=== PATIENT | female | born 2000 | race Two or more races ===

== ENCOUNTER 2022-10-14 17:36 | Emergency (ER) | payer OTHER ==
[~2022-10-14] VITALS: Ht 157.5 cm; Wt 50.8 kg
[2022-10-14] MEDS ORDERED: PRENATAL + DHA1 EAC1 PO (18:11)
[2022-10-14] MEDS ORDERED: CEPHALEXIN500 M1 PO (21:51)
== END 2022-10-14 21:54 | disposition home or self-care (01) ==
LOC: ER 17:36
DX: O20.9 Hemorrhage in early pregnancy, unspecified (principal); O23.41 Unspecified infection of urinary tract in pregnancy, first trimester; N39.0 Urinary tract infection, site not specified; Z3A.01 Less than 8 weeks gestation of pregnancy

== ENCOUNTER 2022-12-26 14:55 | Outpatient (CLI) | payer OTHER ==
[~2022-12-26 14:55] MED LIST: CEPHALEXIN500 M1 PO; PRENATAL + DHA1 EAC1 PO
== END 2022-12-26 16:25 | disposition home or self-care (01) ==
LOC: PRENATAL 14:55
PROVIDERS: ATTEND Obstetrics & Gynecology Maternal & Fetal Medicine
DX: O36.80X0 Pregnancy with inconclusive fetal viability, not applicable or unspecified (principal); Z36.9 Encounter for antenatal screening, unspecified; Z3A.14 14 weeks gestation of pregnancy

== ENCOUNTER 2023-02-06 13:15 | Outpatient (CLI) | payer OTHER | END 2023-02-06 14:15 | disposition home or self-care (01) | LOC: PRENATAL 13:15 | PROVIDERS: ATTEND Obstetrics & Gynecology Maternal & Fetal Medicine | DX: O35.3XX0 Maternal care for (suspected) damage to fetus from viral disease in mother, not applicable or unspecified (principal); O44.00 Complete placenta previa NOS or without hemorrhage, unspecified trimester; Z3A.20 20 weeks gestation of pregnancy ==

== ENCOUNTER 2023-04-11 19:50 | Outpatient (CLI) | payer OTHER ==
[~2023-04-11 19:50] MED LIST changes: +OSEL75CA PO
[2023-04-11] MEDS ORDERED: PRENATAL TABLE1 EAC1 PO (20:01)
[2023-04-11 20:20] LABS: HEMATOCRIT 33.1 % (36.0-45.00); HEMOGLOBIN 11.5 g/dL (12.0-15.00); MEAN CELL VOLUME 93.2 fL (80.00-100.00); MEAN CORPUSCULAR HEMOGLOBIN 32.4 pg (27.00-32.0); MEAN CORPUSCULAR HGB CONC 34.8 g/dl (32.0-36.0); PH,URINE 7.5 (5.0-8.0); PLATELET COUNT 224 K/uL (150-450); RED BLOOD COUNT 3.55 M/uL (4.00-6.00); RED CELL DISTRIBUTION WIDTH 12.7 % (11.5-14.5); URINE APPEARANCE Turbid; URINE BILIRRUBIN Negative (NEGATIVE); URINE BLOOD Negative; URINE COLOR Yellow; URINE GLUCOSE Negative (NEGATIVE); URINE LEUKOCYTE Large; URINE NITRATE Negative; URINE PROTEIN Negative (NEGATIVE)
[2023-04-11 20:23] LABS: URINE BACTERIA 1976.8 uL (0.0-1933); URINE EPITHELIAL CELLS 72.1 uL (0.0-38.8); URINE RBC 3.7 uL (0.0-20.8); URINE WBC 317.2 uL (0.0-23.2)
[2023-04-11 20:40] LABS: URINE CRYSTALS MODERATE /HPF; URINE MUCUS SCANT
== END 2023-04-12 15:20 | disposition home or self-care (01) ==
LOC: OBS/DEL 19:50
PROVIDERS: Obstetrics & Gynecology; ATTEND Obstetrics & Gynecology
DX: O23.33 Infections of other parts of urinary tract in pregnancy, third trimester (principal); N39.0 Urinary tract infection, site not specified; Z3A.29 29 weeks gestation of pregnancy

== ENCOUNTER 2023-06-05 19:02 | Outpatient (CLI) | payer OTHER ==
[~2023-06-05 19:02] MED LIST changes: +PRENATAL TABLE1 EAC1 PO
== END 2023-06-05 20:55 | disposition left against medical advice (07) ==
LOC: OBS/DEL 19:02
PROVIDERS: ATTEND Obstetrics & Gynecology
DX: Z53.21 Procedure and treatment not carried out due to patient leaving prior to being seen by health care provider (principal)

== ENCOUNTER 2023-06-11 11:34 | Outpatient (CLI) | payer OTHER | END 2023-06-11 13:38 | disposition home or self-care (01) | LOC: OBS/DEL 11:34 | PROVIDERS: ATTEND Obstetrics & Gynecology | DX: O26.893 Other specified pregnancy related conditions, third trimester (principal); Z3A.38 38 weeks gestation of pregnancy ==

== ENCOUNTER 2023-06-12 12:48 | Inpatient (IN) | payer OTHER ==
[~2023-06-12] VITALS: Ht 157.5 cm; Wt 67.1 kg
[2023-06-12 13:32] LABS: URINE APPEARANCE Clear; URINE BILIRRUBIN Negative (NEGATIVE); URINE BLOOD Negative; URINE COLOR Yellow; URINE GLUCOSE Negative (NEGATIVE); URINE LEUKOCYTE Moderate; URINE NITRATE Negative; URINE PROTEIN Negative (NEGATIVE)
[2023-06-12 13:47] LABS: URINE BACTERIA 1166.6 uL (0.0-1933); URINE EPITHELIAL CELLS 24.7 uL (0.0-38.8); URINE RBC 2.7 uL (0.0-20.8); URINE WBC 97.2 uL (0.0-23.2)
[2023-06-12 14:11] LABS: HEMATOCRIT 35.7 % (36.0-45.00); HEMOGLOBIN 11.9 g/dL (12.0-15.00); MEAN CELL VOLUME 90.2 fL (80.00-100.00); MEAN CORPUSCULAR HEMOGLOBIN 30.2 pg (27.00-32.0); MEAN CORPUSCULAR HGB CONC 33.4 g/dl (32.0-36.0); PLATELET COUNT 190 K/uL (150-450); RED BLOOD COUNT 3.96 M/uL (4.00-6.00); RED CELL DISTRIBUTION WIDTH 13.6 % (11.5-14.5)
[2023-06-12 14:33] LABS: BILIRUBIN TOTAL 0.37 mg/dL (0.3-1.2); CREATININE SERUM 0.66 mg/dL (0.55-1.02); GFR 110.03; POTASSIUM 3.94 mEq/L (3.5-5.1)
[2023-06-12 14:40] LABS: INR < 0.93; PARTIAL THROMBOPLASTIN TIME 24.4 SECONDS (22.0-34.0); PROTHROMBIN TIME 9.8 SECONDS (9.0-11.5)
[2023-06-16 11:44] LABS: ABG PH 7.318 (7.35-7.45); ABG pCO2 46.3 mmHg (35-45)
[2023-06-16 11:45] LABS: ABG PO2 23.8 mmHg (80-100); BASE EXCESS -3.1 mmol/l; BICARBONATE 23.2 mmol/l (23-25); SaO2 35.2 %; Tco2 24.6 mmol/l; o2 21 %
[2023-06-16 17:58] LABS: HEMATOCRIT 33.1 % (36.0-45.00); MEAN CELL VOLUME 90.9 fL (80.00-100.00); MEAN CORPUSCULAR HEMOGLOBIN 30.2 pg (27.00-32.0); MEAN CORPUSCULAR HGB CONC 33.3 g/dl (32.0-36.0); PLATELET COUNT 181 K/uL (150-450); RED BLOOD COUNT 3.65 M/uL (4.00-6.00); RED CELL DISTRIBUTION WIDTH 13.4 % (11.5-14.5)
[2023-06-19] MEDS ORDERED: IBUPROFEN800 MG PO (07:32)
== END 2023-06-19 14:39 | disposition home or self-care (01) | DRG 787 ==
LOC: OB/GYN 12:48
PROVIDERS: Obstetrics & Gynecology; ADMIT Obstetrics & Gynecology; ATTEND Obstetrics & Gynecology
PROC: 4A1HXCZ Monitoring of Products of Conception, Cardiac Rate, External Approach (ICD-10-PCS; 2023-06-12)
PROC: BY4FZZZ Ultrasonography of Third Trimester, Single Fetus (ICD-10-PCS; 2023-06-13)
PROC: 10D00Z1 Extraction of Products of Conception, Low, Open Approach (ICD-10-PCS; principal; 2023-06-16 10:30)
DX: O36.8330 Maternal care for abnormalities of the fetal heart rate or rhythm, third trimester, not applicable or unspecified (principal); O26.613 Liver and biliary tract disorders in pregnancy, third trimester; O26.843 Uterine size-date discrepancy, third trimester; O36.8130 Decreased fetal movements, third trimester, not applicable or unspecified; Z3A.38 38 weeks gestation of pregnancy; Z20.822 Contact with and (suspected) exposure to COVID-19; Z37.0 Single live birth; O26.893 Other specified pregnancy related conditions, third trimester; L29.9 Pruritus, unspecified